=== PATIENT | female | born 1945 | race Caucasian/White ===

== ENCOUNTER 2018-03-18 16:20 | Emergency (ER) | payer MEDICARE, SELFPAY ==
--- NOTE | 2018-03-18 16:28 | DI.RAD.S_ITS ---
PROCEDURE: XR KNEE RT 3V INDICATIONS: pain TECHNIQUE: 3 views of the knee were acquired. COMPARISON: None. FINDINGS: Bones: No fractures or dislocations. No suspicious bony lesions. Mild tricompartmental osteoarthritic degenerative changes. Soft tissues: Small suprapatellar joint effusion. No suspicious soft tissue calcifications. IMPRESSION: 1. No fracture. No acute osseous lesion. If symptoms and/or clinical suspicion for pathology persists, further assessment with repeat radiographs (7-10 days) or advanced imaging (e.g. CT, MRI or bone scan) may be helpful. 2. Small nonspecific joint effusion. Dictated by: Chelsea Mcdermott MD, PhD on 03/18/2018 at 15:55 Approved by: Chelsea Mcdermott MD, PhD on 03/18/2018 at 15:56
[2018-03-18 16:29] VITALS: BP 148/70; PULSE 62; RESP 15; TEMP 36.5; O2SAT 96; BMI 23.8
[2018-03-18 16:50] VITALS: BP 152/67; PULSE 40; RESP 12; O2SAT 94
--- NOTE | 2018-03-18 18:33 | ED_ITS ---
HPI - Extremity Problem General Chief complaint: Extremity Problem,Nontraumatic Stated complaint: RIGHT KNEE SORENESS [id number] GETTING WORSE Time Seen by Provider: 03/18/18 18:02 Source: patient Mode of arrival: ambulatory Limitations: no limitations History of Present Illness HPI Narrative: 72-year-old female here for evaluation of right knee pain. Patient states that for the past 3 weeks she has had increasing pain him which she thinks is swelling in her right knee. No specific incident that caused the problems. Has never had any knee issues in the past. Does have pain on the inside of her knee. No skin changes. No numbness and tingling the rest of her lower extremity. Related Data Home Medications Medication Instructions Recorded Confirmed Benfotiamine 150 mg PO DAILY 03/18/18 03/18/18 Calcium 1,000 mg PO DAILY 03/18/18 03/18/18 Vitamin B 1 tab PO DAILY 03/18/18 03/18/18 biotin 10 mg PO DAILY 03/18/18 03/18/18 carvedilol 6.25 mg PO BID 03/18/18 03/18/18 cholecalciferol (vitamin D3) 1,000 unit PO DAILY 03/18/18 03/18/18 [Vitamin D3] eszopiclone 3 mg PO BEDTIME 03/18/18 03/18/18 fexofenadine [Allison Allergy] 180 mg PO DAILY 03/18/18 03/18/18 fluticasone-vilanterol [Breo 1 puff INHALATION DIRECTED 03/18/18 03/18/18 Ellipta] ipratropium bromide [Atrovent HFA] 1 puff INHALATION PRN PRN 03/18/18 03/18/18 levalbuterol tartrate 1 dose INHALATION DIRECTED 03/18/18 03/18/18 montelukast 10 mg PO DAILY 03/18/18 03/18/18 turmeric root extract 1 tab PO DAILY 03/18/18 03/18/18 Allergies Allergy/AdvReac Type Severity Reaction Status Date / Time No Known Drug Allergies Allergy Verified 03/18/18 16:29 Review of Systems Constitutional Denies fatigue and Denies fever(s) Musculoskeletal Comments: Right knee pain and swelling Integumentary/Breasts Denies lesions and Denies rash Neurologic Comments: No numbness or tingling right knee Endocrine Denies fatigue Hematologic/Lymphatic Denies easy bleeding and Denies easy bruising PFSH Medical History Hypertension (Acute) Surgical History No pertinent past surgical history (Acute) Social History Smoking Status: Never smoker Exam Initial Vital Signs Initial Vital Signs: Vital Signs Temperature 97.7 F 03/18/18 16:29 Pulse Rate 62 03/18/18 16:29 Respiratory Rate 15 03/18/18 16:29 Blood Pressure 148/70 H 03/18/18 16:29 Pulse Oximetry 96 03/18/18 16:29 Const General: cooperative, healthy appearing, comfortable, well developed, well groomed and No acute distress HENMT Head: normal to inspection and normocephalic Resp Effort & Inspection: normal respiratory effort Cardio Pulses: dorsalis pedis present on the right Skin Lesions: no lesions Rashes: no rashes Neuro Other: Sensation intact to light touch right lower extremity Extrem Other: Tenderness to palpation along the medial joint line right knee ACL PCL LCL and MCL intact with functional testing No lateral joint line tenderness. Patient able to do a straight leg raise. No pain with quadriceps tendon. No pain with patella tendon. Psych Appearance: grossly normal and well kempt Course Orders Ordered: ED Orders 03/18/18 16:28 XR knee RT 3V Stat Vital Signs - 8 hr 03/18/18 16:29 03/18/18 16:50 03/18/18 18:42 Temperature 97.7 F Pulse Rate 62 40 L 59 L Respiratory Rate 15 12 16 Blood Pressure 148/70 H Blood Pressure [Left Arm] 152/67 H 128/71 H Pulse Oximetry 96 94 99 MDM - Extremity (Nontraumatic) Imaging Data Knee x-ray: Radiologist's impression: PROCEDURE: XR KNEE RT 3V INDICATIONS: pain TECHNIQUE: 3 views of the knee were acquired. COMPARISON: None. FINDINGS: Bones: No fractures or dislocations. No suspicious bony lesions. Mild tricompartmental osteoarthritic degenerative changes. Soft tissues: Small suprapatellar joint effusion. No suspicious soft tissue calcifications. IMPRESSION: 1. No fracture. No acute osseous lesion. If symptoms and/or clinical suspicion for pathology persists, further assessment with repeat radiographs (7-10 days) or advanced imaging (e.g. CT, MRI or bone scan) may be helpful. 2. Small nonspecific joint effusion. Dictated by: Chelsea Mcdermott MD, PhD on 03/18/2018 at 15:55 Approved by: Chelsea Mcdermott MD, PhD on 03/18/2018 at 15:5 MDM Narrative Medical decision making narrative: Neurovascularly intact. No fractures on the x -ray. No signs of gout or septic joint. Suspect either an MCL strain or medial meniscus disruption. I discussed all this with the patient. We did discuss return precautions. We did discussed things that she can do at home. She was given return precautions. She expressed understanding and agreement with plan. Discharge Plan Departure Patient Disposition: Home, Self-Care Clinical Impression: Right knee sprain Discharge Date/Time: 03/18/18 18:43 Interventions: ED Discharge Assessment Last Done: 03/18/18 18:40 Instructions: DI for Knee Sprain, How To Perform RICE (Rest, Ice, Compress, Elevate) Activity Restrictions/Additional Instructions: Your only limited in your activity by your discomfort. You can use the knee brace like we discussed. Recommend that you take an anti-inflammatory such as Motrin or Naprosyn. Return to the emergency department for any new or worsening symptoms Prescriptions: No Action biotin 10 mg Tablet 10 mg PO DAILY RF: 0 carvedilol 6.25 mg tablet 6.25 mg PO BID RF: 0 montelukast 10 mg tablet 10 mg PO DAILY RF: 0 cholecalciferol (vitamin D3) [Vitamin D3] 1,000 unit Capsule 1,000 unit PO DAILY RF: 0 eszopiclone 3 mg tablet 3 mg PO BEDTIME RF: 0 levalbuterol tartrate 45 mcg/actuation HFA aerosol inhaler 1 dose Inhalation DIRECTED RF: 0 ipratropium bromide [Atrovent HFA] 17 mcg/actuation HFA aerosol inhaler 1 puff Inhalation PRN PRN (Reason: Shortness Of Breath) RF: 0 fluticasone-vilanterol [Breo Ellipta] 200-25 mcg/dose blister with device 1 puff Inhalation DIRECTED RF: 0 Benfotiamine 150 mg PO DAILY RF: 0 Calcium 1,000 mg PO DAILY RF: 0 Vitamin B 1 tab PO DAILY RF: 0 turmeric root extract 750 mg tablet 1 tab PO DAILY RF: 0 fexofenadine [Allison Allergy] 180 mg Tablet 180 mg PO DAILY RF: 0
[2018-03-18 18:42] VITALS: BP 128/71; PULSE 59; RESP 16; O2SAT 99
== END 2018-03-18 18:43 | disposition home or self-care (01) ==
PROVIDERS: Emergency Provider Emergency Medicine
DX: S83.91XA Sprain of unspecified site of right knee, initial encounter (principal)
CPT/HCPCS: 73562; 99283